=== PATIENT | female | born 2000 | race Caucasian/White ===

== ENCOUNTER 2021-07-17 02:16 | Emergency (ER) | payer MEDICAID ==
[~2021-07-17] VITALS: Ht 162.6 cm; Wt 84.5 kg
[2021-07-17 02:38] VITALS: BP 138/82
[2021-07-17] MEDS ORDERED: IBUPROFEN 600MG TABLET PO STA (02:49)
[2021-07-17] MEDS ORDERED: IBUP-2029 PO (03:14)
[2021-07-17] MEDS ORDERED: OFLO5DRO4 LEFT EAR (03:14)
[2021-07-17] MEDS ORDERED: CEPH500C2 PO (03:14)
== END 2021-07-17 04:12 | disposition home or self-care (01) ==
LOC: ER 02:16
DX: H60.92 Unspecified otitis externa, left ear (principal)
CPT/HCPCS: 81025; 99283